=== PATIENT | female | born 1975 | race Caucasian/White ===

== ENCOUNTER 2024-07-19 04:14 | Day surgery (SDC) | payer OTHER ==
[2024-07-19 10:18] VITALS: BMI 35.4
[2024-07-19] MEDS ORDERED: ONDANSETRON 4 MG/2 ML VIAL ONE ×2 (11:02→17:21)
[2024-07-19] MEDS ORDERED: ROCURONIUM BROMIDE 50 MG/5 ML SYRINGE ONE ×2 (11:02→12:51)
[2024-07-19] MEDS ORDERED: MIDAZOLAM HCL 2 MG/2 ML SINGLE DOSE VIAL ONE (11:02)
[2024-07-19] MEDS ORDERED: DEXAMETHASONE SOD PHOSPHATE 4 MG/1 ML VIAL ONE (11:02)
[2024-07-19] MEDS ORDERED: LIDOCAINE HCL/PF 2% SDV 5ML VIAL ONE (11:02)
[2024-07-19] MEDS ORDERED: PROPOFOL 20 ML ONE (11:02)
[2024-07-19] MEDS ORDERED: ACETAMINOPHEN INJECTION 100 ML ONE (11:03)
[2024-07-19] MEDS ORDERED: SEVOFLURANE 250 ML BTL ONE (11:03)
[2024-07-19] MEDS ORDERED: SUGAMMADEX SODIUM 200 MG/2 ML VIAL ONE (11:03)
[2024-07-19] MEDS ORDERED: TRANEXAMIC ACID 1000 MG/10 ML VIAL ONE (11:03)
[2024-07-19] MEDS ORDERED: HYDROmorphone HCl 2 MG/ML VIAL ONE (11:06)
[2024-07-19] MEDS ORDERED: ONDANSETRON 4 MG/2 ML VIAL IVPUSH PRN (11:11)
[2024-07-19] MEDS ORDERED: oxyCODONE HCL 5 MG TABLET PO PRN ×2 (11:11)
[2024-07-19] MEDS ORDERED: PROMETHAZINE HCL 25 MG/1 ML VIAL IVPB PRN (11:11)
[2024-07-19] MEDS ORDERED: LACTATED RINGERS SOLUTION 1,000 ML IV SCH (11:15)
[2024-07-19] MEDS: cefOXitin SODIUM 2 GM VIAL (RESTRICTED TO ID) IVPB ONE ×2 (12:08)
[2024-07-19] MEDS: BUPIVACAINE HCL/PF 0.5% (5 MG/ML) 30 ML VIAL IJ ONE ×2 (12:20)
[2024-07-19] MEDS ORDERED: KETOROLAC TROMETHAMINE 30 MG/1 ML VIAL ONE (14:29)
[2024-07-19] MEDS: ONDANSETRON 4 MG/2 ML VIAL IVPUSH ONE (17:30)
[2024-07-19 19:31] VITALS: RESP 20
[2024-07-19 19:37] VITALS: BP 143/77; PULSE 85; TEMP 97.7
== END 2024-07-19 19:11 | disposition home or self-care (01) ==
LOC: JASU-SURG 04:14
PROVIDERS: ATTEND Obstetrics & Gynecology Gynecologic Oncology
PROC: 8E0W4CZ Robotic Assisted Procedure of Trunk Region, Percutaneous Endoscopic Approach (ICD-10-PCS; 2024-07-19)
PROC: 0FT44ZZ Resection of Gallbladder, Percutaneous Endoscopic Approach (ICD-10-PCS; 2024-07-19)
PROC: 0UT9FZZ Resection of Uterus, Via Natural or Artificial Opening With Percutaneous Endoscopic Assistance (ICD-10-PCS; principal; 2024-07-19 11:00)
PROC: 0UT7FZZ Resection of Bilateral Fallopian Tubes, Via Natural or Artificial Opening With Percutaneous Endoscopic Assistance (ICD-10-PCS; 2024-07-19 11:00)
PROC: 0UT1FZZ Resection of Left Ovary, Via Natural or Artificial Opening With Percutaneous Endoscopic Assistance (ICD-10-PCS; 2024-07-19 11:00)
DX: N80.03 Adenomyosis of the uterus (principal); N80.103 Endometriosis of bilateral ovaries, unspecified depth; K80.10 Calculus of gallbladder with chronic cholecystitis without obstruction
CPT/HCPCS: 47562; 58552; S2900; 81025; 86850; 86900; 86901; 88304-TC; 88305-TC; 88307-TC; 94760; J0131

== ENCOUNTER 2024-07-25 16:15 | Inpatient (IN) | payer OTHER ==
[2024-07-25 17:12] LABS: BASO % 0.4 % (0-2.0); EOS % 1.2 % (0-4.5); HEMATOCRIT 40.1 % (32.4-45.2); LYMPH % 11.5 % (8-40); MCH 25.7 pg (25.7-33.7); MCHC 32.4 g/dl (32.0-36.0); MEAN CELL VOLUME 79.5 fl (80-96); MEAN PLT VOLUME 8.6 fl (7.5-11.1); MONO % 4.6 % (3.8-10.2); NEUT % 82.3 % (42.8-82.8); PLATELET COUNT 406 10^3/uL (134-434); RBC 5.05 M/mm3 (3.60-5.2); RDW 15.3 % (11.6-15.6); WHITE BLOOD COUNT 14.5 K/mm3 (4.0-10.0)
[2024-07-25] MEDS ORDERED: morphine SULFATE 4 MG/ML VIAL ONE (17:12)
[2024-07-25] MEDS ORDERED: ONDANSETRON 4 MG/2 ML VIAL ONE (17:13)
[2024-07-25] MEDS: SODIUM CHLORIDE 0.9% 1000 ML INFUS.BAG IV ONE (17:22)
[2024-07-25] MEDS: morphine CARPU-JECT 4 MG/1 ML DISP.SYRIN IVPUSH ONE (17:22)
[2024-07-25] MEDS: ONDANSETRON 4 MG/2 ML VIAL IVPUSH ONE (17:23)
[2024-07-25 17:35] LABS: POTASSIUM 4.1 mmol/L (3.5-5.1)
[2024-07-25 17:38] LABS: ALBUMIN 3.4 g/dl (3.4-5.0)
[2024-07-25 17:42] LABS: BILIRUBIN,TOTAL 0.4 mg/dL (0.2-1); TOT PROT 7.1 g/dl (6.4-8.2)
[2024-07-25] MEDS ORDERED: PIPERACILLIN/TAZOB 3.375 GM 3.375 GM/50 ML BAG IVPB ONE (21:54)
[2024-07-25] MEDS: PIPERACILLIN/TAZOB 3.375 GM 3.375 GM in DEXTROSE 5%-WATER - 50 ML IVPB ONE (22:15)
[2024-07-25] MEDS ORDERED: VANCOMYCIN 1 GM PREMIX (F) 1 GM/200 ML BAG ONE (22:17)
[2024-07-25 22:20] LABS: INR 1.09 (0.83-1.09); PROTHROMBIN TIME (PATIENT) 12.5 SEC (9.7-13.0)
[2024-07-25 22:23] LABS: ACTIVATED PTT 30.5 SECONDS (25.2-36.5)
[2024-07-25] MEDS: VANCOMYCIN 1,000 MG in DEXTROSE 5%-WATER - 250 ML IVPB ONE (22:27)
[2024-07-26] MEDS ORDERED: MELATONIN 5 MG TABLETS PO PRN (01:15)
[2024-07-26] MEDS ORDERED: ACETAMINOPHEN 325 MG TABLET (FP) PO PRN (01:25)
[2024-07-26 02:19] VITALS: BMI 37.3
[2024-07-26] MEDS: PREGABALIN 100 MG CAPSULE PO SCH (02:32)
[2024-07-26] MEDS: MONTELUKAST NA 5 MG TAB.CHEW PO SCH (02:34)
[2024-07-26 02:58] LABS: EPI CELLS 22 /uL (0-25.1); HYALINE CASTS 1 /uL (0-3.1); PH,URINE 6.5 (5.0-8.0); URINE APPEARANCE Cloudy; URINE BACTERIA 1591 /uL (0-1359); URINE BILIRUBIN NEGATIVE (NEGATIVE); URINE COLOR YELLOW; URINE GLUCOSE (UA) NEGATIVE (NEGATIVE); URINE KETONE NEGATIVE (NEGATIVE); URINE LEUK ESTERASE NEGATIVE (NEGATIVE); URINE NITRITE POSITIVE (NEGATIVE); URINE PROTEIN TRACE (NEGATIVE); URINE RBC 117 /uL (0-23.9); URINE WBC 37 /uL (0-25.8)
[2024-07-26] MEDS ORDERED: PIPERACILLIN/TAZOB 3.375 GM 3.375 GM in DEXTROSE 5%-WATER - 50 ML IVPB SCH (03:00)
[2024-07-26 05:10] VITALS: RESP 18
[2024-07-26] MEDS: ACETAMINOPHEN 1000 MG/100 ML BAG IVPB PRN (05:23)
[2024-07-26 08:12] LABS: HEMATOCRIT 36.7 % (32.4-45.2); HEMOGLOBIN 11.8 GM/dL (10.7-15.3); MCH 25.7 pg (25.7-33.7); MCHC 32.1 g/dl (32.0-36.0); MEAN CELL VOLUME 80.1 fl (80-96); MEAN PLT VOLUME 8.5 fl (7.5-11.1); PLATELET COUNT 378 10^3/uL (134-434); RBC 4.59 M/mm3 (3.60-5.2); WHITE BLOOD COUNT 12.6 K/mm3 (4.0-10.0)
[2024-07-26 08:35] LABS: POTASSIUM 4.5 mmol/L (3.5-5.1)
[2024-07-26 08:38] LABS: ALBUMIN 3.1 g/dl (3.4-5.0); BLOOD UREA NITROGEN 14.8 mg/dL (7-18); CALCIUM 8.8 mg/dL (8.5-10.1); MAGNESIUM 2.3 mg/dL (1.8-2.4)
[2024-07-26 08:42] LABS: CREATININE 0.9 mg/dL (0.55-1.3); PHOSPHOROUS 4.2 mg/dL (2.5-4.9)
[2024-07-26 08:43] LABS: BILIRUBIN,TOTAL 0.5 mg/dL (0.2-1); TOT PROT 6.4 g/dl (6.4-8.2)
[2024-07-26] MEDS ORDERED: VANCOMYCIN/WATER 1250 MG 1,250 MG/250 ML BAG IVPB SCH (10:00)
[2024-07-26] MEDS ORDERED: VANCOMYCIN 1,000 MG in DEXTROSE 5%-WATER - 250 ML IVPB SCH (10:00)
[2024-07-26] MEDS: VANCOMYCIN/WATER 1250 MG 1,250 MG/250 ML BAG IVPB SCH (10:04)
[2024-07-26] MEDS: ENOXAPARIN NA (PORCINE) 40 MG/0.4 ML DISP.SYRIN SQ SCH (10:04)
[2024-07-26] MEDS: LACTATED RINGERS SOLUTION 1,000 ML/1,000 ML INFUS.BAG IV SCH (10:05)
[2024-07-26 11:00] VITALS: BP 106/63; PULSE 75; TEMP 98.1
[2024-07-26] MEDS ORDERED: NORETHINDRONE 0.35 MG PO SCH (22:00)
[2024-07-26] MEDS ORDERED: PANTOPRAZOLE 20 MG TABLET PO SCH (22:00)
== END 2024-07-26 13:15 | disposition home or self-care (01) | DRG 721 ==
LOC: JER 16:15 → JERBED 07-26 00:33 → OBSVTOIN 07-26 00:59 → J7W 07-26 01:44
PROVIDERS: ADMIT Internal Medicine; ATTEND Registered Nurse
DX: T81.49XA Infection following a procedure, other surgical site, initial encounter (principal); N73.9 Female pelvic inflammatory disease, unspecified; F32.A Depression, unspecified; M79.7 Fibromyalgia; K21.9 Gastro-esophageal reflux disease without esophagitis; N80.9 Endometriosis, unspecified; E66.9 Obesity, unspecified; Z68.37 Body mass index [BMI] 37.0-37.9, adult; Z71.3 Dietary counseling and surveillance; Y83.8 Other surgical procedures as the cause of abnormal reaction of the patient, or of later complication, without mention of misadventure at the time of the procedure; V43.62XA Car passenger injured in collision with other type car in traffic accident, initial encounter; Y93.89 Activity, other specified; Y92.414 Local residential or business street as the place of occurrence of the external cause; Y99.8 Other external cause status
CPT/HCPCS: 36415; 70450-TC; 71046-TC-FY; 72125-TC; 73521-TC-FY; 74177-TC; 76705-TC; 80053; 81003; 83690; 83735; 84100; 85025; 85027; 85610; 85730; 86850; 86900; 86901; 87086; 93005; 93010; 99285-25; G0378; J0131